=== PATIENT | female | born 1965 | race Caucasian/White ===

== ENCOUNTER 2023-07-29 16:28 | Inpatient (IN) ==
--- NOTE | 2023-07-29 16:52 | Emergency Department Note ---
Impression & Plan Acute hypoxemic respiratory failure, Acute hypokalemia, Hypomagnesemia, Hypocalcemia, Acute pericardial effusion ED Provider Note HISTORY OF PRESENT ILLNESS: Patient is a 58-year-old female presenting with shortness of breath. Patient was seen at [facility] for an outpatient surgery on her shoulder and wrist today. She reportedly has been short of breath with hypoxia since awaking from surgery. She does not normally wear any supplemental oxygen. Her saturations were down in the upper 80s. Patient denies any anticoagulation use. Denies any DVT or PE history. Patient reports she always feels short of breath, but states she feels more short of breath since waking up from surgery. Reports that she has had right leg pain that radiated up into her right groin over the last few weeks. ROS: as above PHYSICAL EXAM: Constitutional: Patient appears in no acute distress. HENT: Head: Normocephalic and atraumatic. Eyes: EOMI, PERRL Mouth/Throat: Mucous membranes moist. Neck: Trachea midline. Neck supple. Cardiovascular: Tachycardic with regular rhythm. No murmurs, rubs or gallops. Intact distal pulses. Pulmonary/Chest: No respiratory distress. Breath sounds clear and equal bilaterally. No wheezes or rales. Abdominal: Abdomen soft, no tenderness, rebound or guarding. Musculoskeletal: Surgical dressing to left shoulder. Left arm is in a sling. Skin: Warm and dry. No rash, erythema, pallor or cyanosis Psychiatric: Appropriate mood and affect for situation. Neurological: Alert and keenly responsive. CN II-XII grossly intact MDM: - Vitals signs showed tachycardia and hypoxia. Patient placed on 2 L nasal cannula. - History obtained via patient. History as above. - Chronic conditions affecting care: HTN; DM-2; COPD - Differential diagnoses include, but are not limited to: Congestive heart failure; acute coronary syndrome; COPD/asthma exacerbation; pulmonary edema; pulmonary embolism; pneumonia; pneumothorax; viral syndrome - Order placed for continuous cardiac monitoring. At this time, monitor showed rate of 100 bpm with normal sinus rhythm, per my interpretation. - External medical records reviewed. Operative record dated today was reviewed. Patient had a left shoulder arthroscopy with biceps tenodesis, rotator cuff repair and subacromial decompression and revision of her left carpal tunnel release performed. - EKG interpreted by myself showed normal sinus rhythm. Rate tachycardic at 102 bpm. QT 314. No acute ischemic changes. - Laboratory workup interpreted by myself showed normal WBC; slight hypokalemia (K 3.1); hypomagnesemia (Mg 1.6); hypocalcemia (Ca 8.0); hyperglycemia (glucose 286); normal troponin; normal BNP - CXR negative for pneumonia, per my interpretation - CT PE negative for PE but noted to have small to moderate pericardial effusion - Viral respiratory panel negative - UA negative for infection - Patient given 1g IV magnesium, a total of 20 mEq IV potassium and 1g IV calcium for electrolyte replacements. - Bilateral DVT US ordered, as patient reports she has had right calf and right groin pain for the last few weeks - Discussion was had with cyanide case hardener about patient's case and need for admission - Hospitalist consulted for admission - [facility] ASSESSMENT AND PLAN: Diagnosis: acute hypoxic respiratory failure; acute pericardial effusion; acute hypokalemia; acute hypomagnesemia; hypocalcemia Plan: admit Past Med/Surg History Social History Smoking Status: Current every day smoker Tobacco Type: Cigarettes Feels Safe at Home: Yes Allergies Allergies Allergy/AdvReac Type Severity Reaction Status Date / Time acetaminophen Allergy Unknown Verified 07/29/23 20:11 [From Darvocet-N] metformin Allergy Itching Verified 07/29/23 20:11 propoxyphene Allergy Unknown Verified 07/29/23 20:11 [From Darvocet-N] tramadol Allergy Unknown Verified 07/29/23 20:11 prednisone AdvReac Nausea Verified 07/29/23 20:11 Home Meds Home Medications Medication Instructions Recorded Confirmed Lactobacillus acidophilus 1 tab PO DAILY 07/29/23 07/29/23 (Acidophilus chewable tablet) acetaminophen 500 mg tablet 500 mg PO Q6H PRN Pain 07/29/23 07/29/23 (Tylenol Extra Strength) albuterol sulfate 90 mcg/actuation 1 - 2 puff inhalation Q4 PRN 07/29/23 07/29/23 aerosol inhaler Shortness Of Breath Or Wheezing alprazolam 0.25 mg tablet 0.25 mg PO TID PRN Anxiety 07/29/23 07/29/23 ascorbic acid (vitamin C) 500 mg 500 mg PO DAILY 07/29/23 07/29/23 tablet (Vitamin C) baclofen 20 mg tablet 20 mg PO TID PRN Muscle Pain 07/29/23 07/29/23 famotidine 40 mg tablet 40 mg PO DAILY 07/29/23 07/29/23 fluconazole 100 mg tablet 100 mg PO QAM 07/29/23 07/29/23 fluticasone 250 mcg-salmeterol 50 1 inh inhalation BID 07/29/23 07/29/23 mcg/dose blistr powdr for inhalation hydrochlorothiazide 12.5 mg capsule 12.5 mg PO DAILY 07/29/23 07/29/23 hydrocodone 7.5 mg-acetaminophen 1 tab PO Q6 PRN Pain 07/29/23 07/29/23 325 mg tablet melatonin 3 mg tablet 6 mg PO HS 07/29/23 07/29/23 olmesartan 20 mg tablet 20 mg PO DAILY 07/29/23 07/29/23 omeprazole 40 mg capsule,delayed 40 mg PO DAILY 07/29/23 07/29/23 release ondansetron HCl 8 mg tablet 8 mg PO BID PRN Nausea 07/29/23 07/29/23 oxcarbazepine 600 mg tablet 300 mg PO BID 07/29/23 07/29/23 oxycodone 5 mg tablet 5 mg PO Q6 PRN Pain 07/29/23 07/29/23 potassium chloride 10 mEq 10 meq PO DAILY 07/29/23 07/29/23 tablet,extended release(part/cryst) ropinirole 0.25 mg tablet 0.25 mg PO HS 07/29/23 07/29/23 rosuvastatin 20 mg tablet 20 mg PO DAILY 07/29/23 07/29/23 sennosides 8.6 mg tablet (Senokot) 17.2 mg PO BID 07/29/23 07/29/23 trazodone 100 mg tablet 100 mg PO HS 07/29/23 07/29/23 valacyclovir 500 mg tablet 500 mg PO HS 07/29/23 07/29/23 venlafaxine 150 mg 150 mg PO HS 07/29/23 07/29/23 capsule,extended release 24 hr Results & Data (ED) Vital Signs Vital Signs - 24 hr 07/29/23 16:31 07/29/23 16:31 07/29/23 16:41 Temperature 36.8 C 36.4 C Temperature Source Oral Oral Pulse Rate 104 H 100 H 103 H Pulse Rate [Finger] Pulse Rate from SpO2 Sensor Pulse Rhythm Regular Regular Regular Pulse Rhythm [Finger] Pulse Strength Normal Normal Pulse Strength [Finger] Respiratory Rate 20 18 20 Respiratory Effort / Characteristics Non-Labored Non-Labored Respiratory Depth Normal Normal Respiratory Pattern Regular Regular Blood Pressure 121/95 121/95 Blood Pressure [Right Arm] Blood Pressure Mean 103 103 Blood Pressure Mean [Right Arm] Blood Pressure Position Lying Lying Blood Pressure Position [Right Arm] Pulse Oximetry 94 92 93 Oxygen Delivery Method Nasal Cannula Nasal Cannula Nasal Cannula Oxygen Flow Rate 2 2 2 Sepsis Recent Fever Within 48 Hours No No Sepsis New/Unexplained Change in Mental Status N/A N/A Sepsis Action Taken by Nursing No Action Required No Action Required Pulse Oximetry Post Tiitration 07/29/23 16:41 07/29/23 16:49 07/29/23 17:30 Temperature Temperature Source Pulse Rate Pulse Rate [Finger] 100 H Pulse Rate from SpO2 Sensor Pulse Rhythm Pulse Rhythm [Finger] Regular Pulse Strength Pulse Strength [Finger] Normal Respiratory Rate 18 Respiratory Effort / Characteristics Non-Labored Non-Labored Spontaneous Respiratory Depth Normal Normal Respiratory Pattern Regular Regular Blood Pressure Blood Pressure [Right Arm] 143/84 H Blood Pressure Mean Blood Pressure Mean [Right Arm] 103 Blood Pressure Position Blood Pressure Position [Right Arm] Lying Pulse Oximetry 85 L 92 Oxygen Delivery Method Nasal Cannula Nasal Cannula Nasal Cannula Oxygen Flow Rate 2 2 2 Sepsis Recent Fever Within 48 Hours Sepsis New/Unexplained Change in Mental Status Sepsis Action Taken by Nursing Pulse Oximetry Post Tiitration 92 07/29/23 18:00 07/29/23 18:01 07/29/23 19:14 Temperature Temperature Source Pulse Rate 99 H 101 H Pulse Rate [Finger] 100 H Pulse Rate from SpO2 Sensor 101 H Pulse Rhythm Pulse Rhythm [Finger] Pulse Strength Pulse Strength [Finger] Respiratory Rate 16 25 H Respiratory Effort / Characteristics Respiratory Depth Respiratory Pattern Blood Pressure 146/95 H Blood Pressure [Right Arm] 149/90 H Blood Pressure Mean 112 Blood Pressure Mean [Right Arm] 109 Blood Pressure Position Blood Pressure Position [Right Arm] Pulse Oximetry 93 93 Oxygen Delivery Method Nasal Cannula Oxygen Flow Rate 2 Sepsis Recent Fever Within 48 Hours Sepsis New/Unexplained Change in Mental Status Sepsis Action Taken by Nursing Pulse Oximetry Post Tiitration Laboratory Data 07/29/23 16:45 07/29/23 16:45 Lab Results 07/29/23 07/29/23 07/29/23 Range/Units 16:40 16:45 17:24 WBC 10.39 (4.8-10.8) K/ul RBC 4.73 (4.20-5.40) M/uL Hgb 14.7 (12.0-16.0) g/dl Hct 44.6 (37.0-47.0) % MCV 94.3 (80.0-100.0) fL MCH 31.1 (25.0-34.0) pg MCHC 33.0 (32.0-36.0) g/dL RDW Std Deviation 46.5 H (36.4-46.3) fL RDW Coeff of Katina 13.5 (11.5-14.5) % Plt Count 207 (130-400) K/uL MPV 9.9 (9.4-12.4) fL Immature Gran % (Auto) 0.6 % Neut % (Auto) 88.6 % Lymph % (Auto) 9.3 % Gove % (Auto) 1.3 % Eos % (Auto) 0.0 % Baso % (Auto) 0.2 % Neut # (Auto) 9.21 H (1.40-6.50) K/uL Lymph # (Auto) 0.97 L (1.20-3.40) K/uL Gove # (Auto) 0.13 (0.11-0.59) K/uL Eos # (Auto) 0.00 (0.00-0.50) K/uL Baso # (Auto) 0.02 (0.00-0.20) K/uL Immature Gran # (Auto) 0.06 (0.01-0.20) K/uL PT 10.9 (9.0-12.0) Seconds INR 1.0 (0.9-1.1) VBG pH 7.38 (7.36-7.41) VBG pCO2 48 (38-50) mmHg VBG pO2 66 mmHg VBG HCO3 28 mmol/L VBG O2 Saturation 93.0 % VBG Base Excess 2.5 mEq/L Sodium 141 (136-145) mmol/L Potassium 3.1 L (3.5-5.1) mmol/L Chloride 100 (98-107) mmol/L Carbon Dioxide 27 (21-32) mmol/L Anion Gap 14 H (3-11) BUN 9 (6-23) mg/dl Creatinine 0.64 (0.6-1.2) mg/dl Est Cr Clr Drug Dosing 93.5 ml/min Est GFR ( Amer) 115.6 ml/min Est GFR (Non-Af Amer) 99.8 ml/min BUN/Creatinine Ratio 14.1 (10-20) Glucose 286 H (70-99(Fasting)) mg/dl Calcium 8.0 L (8.6-10.3) mg/dl Magnesium 1.6 L (1.7-2.4) mg/dl Total Bilirubin 0.3 (0.2-1.0) mg/dl AST 41 H (13-39) U/L ALT 47 (7-52) U/L Alkaline Phosphatase 74 (34-104) U/L Troponin I High Sens 6.8 (0-14) pg/ml B-Natriuretic Peptide 12 (0-100) pg/ml Total Protein 6.7 (6.0-8.3) gm/dl Albumin 4.2 (3.4-5.0) gm/dl Globulin 2.5 (2.5-4.0) gm/dl Albumin/Globulin Ratio 1.7 (0.9-2) Urine Color Yellow Urine Appearance Clear (Clear) Urine pH 6.0 (4.5-7.5) Ur Specific [place] 1.012 (1.000-1.030) Urine Protein Negative (Negative) Urine Glucose (UA) 3+ H (Negative) Urine Ketones Negative (Negative) Urine Blood Trace H (Negative) Urine Nitrite Negative (Negative) Urine Bilirubin Negative (Negative) Urine Urobilinogen Negative (Negative) Ur Leukocyte Esterase Negative (Negative) Urine WBC (Auto) 0 (0-5) /hpf Urine RBC (Auto) 0-4 (0-4) /hpf U Hyaline Cast (Auto) 0 (0-5) /lpf U Epithel Cells (Auto) 5-10 H (0-5) /lpf Urine Bacteria (Auto) Negative (Negative) Adenovirus (PCR) Not Detected (NotDetected) B. pertussis DNA (PCR) Not Detected (NotDetected) B.parapertussis DNA PCR Not Detected (NotDetected) C. pneumoniae DNA (PCR) Not Detected (NotDetected) Coronavirus OC43 (PCR) Not Detected (NotDetected) Coronavirus HKU1 (PCR) Not Detected (NotDetected) Coronavirus 229E (PCR) Not Detected (NotDetected) SARS-CoV-2 (PCR) Not Detected (NotDetected) Coronavirus NL63 (PCR) Not Detected (NotDetected) Human Metapneumovir PCR Not Detected (NotDetected) Influenza Type A (PCR) Not Detected (NotDetected) Influenza Type B (PCR) Not Detected (NotDetected) M. pneumoniae (PCR) Not Detected (NotDetected) Parainfluenza 1 (PCR) Not Detected (NotDetected) Parainfluenza 2 (PCR) Not Detected (NotDetected) Parainfluenza 3 (PCR) Not Detected (NotDetected) Parainfluenza 4 (PCR) Not Detected (NotDetected) RSV (PCR) Not Detected (NotDetected) Entero/Rhino (PCR) Not Detected (NotDetected) Administered Medications Discontinued Medications Calcium Gluconate () 1,000 mg in 60 mls @ 240 mls/hr IV NOW STA Stop: 07/29/23 20:18 Last Admin: 07/29/23 20:15 Dose: 240 mls/hr Documented By: TONY Ioversol (Optiray 320 125ml) 119 ml IV ONCE ONE Stop: 07/29/23 17:43 Last Admin: 07/29/23 17:42 Dose: 119 ml Documented By: LESLIE Imaging Data Radiologist's Impression: Chest X-Ray 07/29/23 16:31 XR chest 1V portable HISTORY: 58 years-old Female Dyspnea acute shortness of breath COMPARISON: None TECHNIQUE: AP view of the chest FINDINGS: Cardiac silhouette is enlarged. No pneumothorax, pleural effusion or overt pulmonary edema. Subsegmental left basilar opacities. Square-shaped structures overlying the left hemithorax are likely artifactual/external to the patient. Bones appear grossly intact. Cervical spinal fusion hardware. IMPRESSION: Subsegmental left basilar opacities favor atelectasis. ACT 112: Negative or not required by law. The above report was generated using voice recognition software. It may contain grammatical, syntax or spelling errors. Electronically signed by: Isaac Wyatt M.D. 07/29/2023 5:18 PM Chest CTA 07/29/23 16:55 CT angio chest PE protocol CT DOSE: 810.36 mGy.cm HISTORY: 58 years-old Female with PE; hypoxia post surgery. Acute shortness of breath with hypoxia TECHNIQUE: Multiple CTA images of the chest were obtained after the intravenous administration of 119 ml Optiray. Coronal and sagittal MIPS were obtained from the axial data set and were submitted for review. All measurements were obtained according to NASCET criteria. A dose lowering technique was utilized adhering to the principles of ALARA. COMPARISON: 07/29/2023 FINDINGS: CTA: A pericardial effusion is noted measuring up to 1.2 cm transversely. Mild coronary artery calcifications. 1 atherosclerosis of the aorta without aneurysm or dissection. No pulmonary emboli identified. CT CHEST: Unremarkable thyroid. No pathologically enlarged lymph nodes. Mild dependent bibasilar consolidation. No pneumothorax or overt pulmonary edema. There is mild pulmonary emphysema. No suspicious pulmonary nodules or masses. No acute upper abdominal abnormality. Cervical spinal fusion hardware. Degenerative changes of the shoulders and spine. Left glenohumeral joint effusion contains air with additional edema and air within the adjacent musculature and soft tissues including the deltoid muscle. IMPRESSION: 1. No pulmonary emboli identified. 2. Dependent bibasilar consolidation suggestive of atelectasis. 3. Small to moderate pericardial effusion. 4. Postoperative changes of the left shoulder. ACT 112: Negative or not required by law. The above report was generated using voice recognition software. It may contain grammatical, syntax or spelling errors. Electronically signed by: Isaac Wyatt M.D. 07/29/2023 6:06 PM Discharge Plan Visit Data Chief Complaint: Shortness of Breath/Dyspnea Stated Complaint: DECREASED O2 SATS; COMING FROM [facility] ED Provider: Radha Holland Discharge Problem: Acute hypoxemic respiratory failure, Acute hypokalemia, Hypomagnesemia, Hypocalcemia, Acute pericardial effusion Forms Stand Alone Forms: [employer] Prescriptions Prescriptions: No Action fluconazole 100 mg tablet 100 mg PO QAM fluticasone propion-salmeterol 250-50 mcg/dose blister with device 1 inh INHALATION BID sennosides [Senokot] 8.6 mg Tablet 17.2 mg PO BID ondansetron HCl 8 mg tablet 8 mg PO BID PRN (Reason: Nausea) famotidine 40 mg tablet 40 mg PO DAILY venlafaxine 150 mg capsule,extended release 24hr 150 mg PO HS melatonin 3 mg Tablet 6 mg PO HS valacyclovir 500 mg tablet 500 mg PO HS omeprazole 40 mg capsule,delayed release(DR/EC) 40 mg PO DAILY acetaminophen [Tylenol Extra Strength] 500 mg Tablet 500 mg PO Q6H PRN (Reason: Pain) baclofen 20 mg tablet 20 mg PO TID PRN (Reason: Muscle Pain) alprazolam 0.25 mg tablet 0.25 mg PO TID PRN (Reason: Anxiety) ascorbic acid (vitamin C) [Vitamin C] 500 mg Tablet 500 mg PO DAILY trazodone 100 mg tablet 100 mg PO HS ropinirole 0.25 mg tablet 0.25 mg PO HS hydrocodone-acetaminophen 7.5-325 mg tablet 1 tab PO Q6 PRN (Reason: Pain) hydrochlorothiazide 12.5 mg capsule 12.5 mg PO DAILY oxcarbazepine 600 mg tablet 300 mg PO BID albuterol sulfate 90 mcg/actuation HFA aerosol inhaler 1 - 2 puff INHALATION Q4 PRN (Reason: Shortness Of Breath Or Wheezing) oxycodone 5 mg tablet 5 mg PO Q6 PRN (Reason: Pain) olmesartan 20 mg tablet 20 mg PO DAILY Acidophilus Tablet,Chewable 1 tab PO DAILY rosuvastatin 20 mg tablet 20 mg PO DAILY potassium chloride 10 mEq tablet,ER particles/crystals 10 meq PO DAILY Referrals Referrals: PCP,NO [Physician] -
[2023-07-29 16:58] LABS: Basophils # (auto) 0.02 K/uL (0.00-0.20); Basophils % (auto) 0.2 %; Hematocrit (blood only) 44.6 % (37.0-47.0); Hemoglobin 14.7 g/dl (12.0-16.0); Immature Granulocytes # (auto) 0.06 K/uL (0.01-0.20); Immature Granulocytes % (auto) 0.6 %; Lymphocytes # (auto) 0.97 K/uL (1.20-3.40); Lymphocytes % (auto) 9.3 %; Mean Corpuscular Hemoglobin 31.1 pg (25.0-34.0); Mean Corpuscular Volume 94.3 fL (80.0-100.0); Mean Platelet Volume 9.9 fL (9.4-12.4); Monocytes # (auto) 0.13 K/uL (0.11-0.59); Monocytes % (auto) 1.3 %; Neutrophils # (auto) 9.21 K/uL (1.40-6.50); Neutrophils % (auto) 88.6 %; Platelet Count 207 K/uL (130-400); RDW Coefficient of Variation 13.5 % (11.5-14.5); RDW Standard Deviation 46.5 fL (36.4-46.3); Red Blood Count 4.73 M/uL (4.20-5.40); White Blood Count 10.39 K/ul (4.8-10.8)
--- NOTE | 2023-07-29 17:20 | XRay Report ---
XR chest 1V portable HISTORY: 58 years-old Female Dyspnea acute shortness of breath COMPARISON: None TECHNIQUE: AP view of the chest FINDINGS: Cardiac silhouette is enlarged. No pneumothorax, pleural effusion or overt pulmonary edema. Subsegmen ángela left basilar opacities. Square-shaped structures overlying the left hemithorax are likely artifac tual/external to the patient. Bones appear grossly intact. Cervical spinal fusion hardware. IMPRESSION: Subsegmental left basilar opacities favor atelectasis. ACT 112: Negative or not required by law. The above report was generated using voice recognition software. It may contain grammatical, syntax o r spelling errors. Electronically signed by: Isaac Wyatt M.D. 07/29/2023 5:18 PM
[2023-07-29 17:22] LABS: Albumin Globulin Ratio 1.7 (0.9-2); Albumin Level 4.2 gm/dl (3.4-5.0); BUN Creatinine Ratio 14.1 (10-20); Bilirubin,Total 0.3 mg/dl (0.2-1.0); Creatinine Clr Calc Pharmacy 93.5 ml/min; Est GFR (African American) 115.6 ml/min; Est GFR (Non-African American) 99.8 ml/min; Globulin 2.5 gm/dl (2.5-4.0); Magnesium 1.6 mg/dl (1.7-2.4); Potassium 3.1 mmol/L (3.5-5.1); Total Protein 6.7 gm/dl (6.0-8.3)
[2023-07-29 17:27] LABS: Appearance Urine Clear (Clear); Bacteria Urine Automated Negative (Negative); Bilirubin Urine Negative (Negative); Blood Urine Trace (Negative); Cast Urine Automated 0 /lpf (0-5); Color Urine Yellow; Glucose Urine UA 3+ (Negative); Ketones Urine Negative (Negative); Leukocyte Esterase Urine Negative (Negative); Nitrite Urine Negative (Negative); Protein Urine Negative (Negative); RBC Urine Automated 0-4 /hpf (0-4); Specific Gravity Urine 1.012 (1.000-1.030); Urobilinogen Urine Negative (Negative); WBC Urine Automated 0 /hpf (0-5)
[2023-07-29 17:28] LABS: Prothrombin Time 10.9 Seconds (9.0-12.0); Troponin I High Sensitivity 6.8 pg/ml (0-14)
[2023-07-29 17:32] LABS: Base Excess VBG 2.5 mEq/L; HCO3 VBG 28 mmol/L; PCO2 VBG 48 mmHg (38-50); PO2 VBG 66 mmHg; pH VBG 7.38 (7.36-7.41)
[2023-07-29] MEDS: OPTIRAY 320 125ml IV ONE (17:42)
--- NOTE | 2023-07-29 18:08 | CT Scan Report ---
CT angio chest PE protocol CT DOSE: 810.36 mGy.cm HISTORY: 58 years-old Female with PE; hypoxia post surgery. Acute shortness of breath with hypoxia TECHNIQUE: Multiple CTA images of the chest were obtained after the intravenous administration of 119 ml Optiray. Coronal and sagittal MIPS were obtained from the axial data set and were submitted for review. All measurements were obtained according to NASCET criteria. A dose lowering technique was u tilized adhering to the principles of ALARA. COMPARISON: 07/29/2023 FINDINGS: CTA: A pericardial effusion is noted measuring up to 1.2 cm transversely. Mild coronary artery calcificati ons. 1 atherosclerosis of the aorta without aneurysm or dissection. No pulmonary emboli identified. CT CHEST: Unremarkable thyroid. No pathologically enlarged lymph nodes. Mild dependent bibasilar consolidation. No pneumothorax or overt pulmonary edema. There is mild pulmonary emphysema. No suspicious pulmonary nodules or masses. No acute upper abdominal abnormality. Cervical spinal fusion hardware. Degenerati ve changes of the shoulders and spine. Left glenohumeral joint effusion contains air with additional edema and air within the adjacent musculature and soft tissues including the deltoid muscle. IMPRESSION: 1. No pulmonary emboli identified. 2. Dependent bibasilar consolidation suggestive of atelectasis. 3. Small to moderate pericardial effusion. 4. Postoperative changes of the left shoulder. ACT 112: Negative or not required by law. The above report was generated using voice recognition software. It may contain grammatical, syntax o r spelling errors. Electronically signed by: Isaac Wyatt M.D. 07/29/2023 6:06 PM
[2023-07-29 18:12] LABS: Adenovirus PCR Not Detected (NotDetected); Bordetella parapertussis PCR Not Detected (NotDetected); Bordetella pertussis PCR Not Detected (NotDetected); Chlamydia pneumoniae PCR Not Detected (NotDetected); Coronavirus 229E PCR Not Detected (NotDetected); Coronavirus CoV-2 (COVID19)PCR Not Detected (NotDetected); Coronavirus HKU1 PCR Not Detected (NotDetected); Coronavirus NL63 PCR Not Detected (NotDetected); Coronavirus OC43PCR Not Detected (NotDetected); Human Metapneumovirus PCR Not Detected (NotDetected); Influenza A PCR Not Detected (NotDetected); Influenza B PCR Not Detected (NotDetected); Mycoplasma pneumoniae PCR Not Detected (NotDetected); Parainfluenza Virus 1 PCR Not Detected (NotDetected); Parainfluenza Virus 2 PCR Not Detected (NotDetected); Parainfluenza Virus 3 PCR Not Detected (NotDetected); Parainfluenza Virus 4 PCR Not Detected (NotDetected); Respiratory Syncytial VirusPCR Not Detected (NotDetected); Rhinovirus/Enterovirus PCR Not Detected (NotDetected)
[2023-07-29] MEDS: CALCIUM GLUCONATE 1,000 MG/60 ML BAG IV STA (20:15)
--- NOTE | 2023-07-29 20:17 | History & Physical Report ---
Date of Service July 29, 2023 Assessment & Plan (1) Acute hypoxemic respiratory failure: (2) Acute hypokalemia: (3) Hypomagnesemia: (4) Pericardial effusion: (5) Hypertension: (6) COPD (chronic obstructive pulmonary disease): (7) Tobacco abuse: (8) Chronic pain: (9) S/P arthroscopy of left shoulder: Plan 58 year old female with h/o COPD and tobacco abuse s/p left shoulder surgery today who was sent to ED for hypoxia post op Acute hypoxic respiratory failure- details above. CT with no PE or PNA but some atelectasia. RVP negative. BNP negative. Currently on 2 L NC saturating well. No resp distress, no crackles or wheezing. No COPD exacerbation. Likely related to her COPD, tobacco abuse and atelectasia in setting of anesthesia. Will have duonebs qid, pulmicort/peroformist, IS, flutter valve. No indication for steroids or antibiotics. Will be cautious with opiates although she will need it given her chronic opiate use as well as recent surgery. Will need 2 step O2 eval prior to discharge - CT with small-mod pericardial effusion. Consider checking echo if needed or OP follow up. Hypokalemia- repleted, recheck in am Hypomagnesemia- repleted, recheck in am HTN- continue olmesartan. Hold HCTZ. Can likely resume in am if needed Left shoulder arthroscopy with left carpal tunnel repair by Dr Crespo POD0- consult orthopedic for regular post op care. Oxy 5-10 mg q4hr prn for mod-sev pain, iv toradaol prn for breakthrough pain. Hold home norco while on oxy. Continue bowel regimen. PT OT eval. sc lovenox from am Tobacco abuse- recommended quitting. smokes 1 ppd. nicoderm patch H/o DM- states she was on jardiance but it dropped her BG too much and it was taken away. Check A1c in am and accucheck achs. Depression- on effexor Chronic pain on opiates and baclofen. takes xanax hs DVT ppx- sc lovenox Dispo- admit to [facility] on tele Updated daughter at bedside Time spent- 88 mins History of Present Illness Chief Complaint: SOB, hypoxia post surgery Primary Care Provider: Tim D. Armstrong, DO 58 year old female with h/o COPD, tobacco abuse, HTN, depresson, HLD, chronic pain on opiates who presented to the ED from [facility] for hypoxia. Patient had left shoulder arthroscopy and left carpal tunnel repair today by Dr Crespo. Patient was found to be hypoxic post op at 84-90% on room air and on ambulation it was 76% on room air. She was sent to the ED for further management. She was given nebs en route and placed on oxygen she felt better. She had CT chest which was negative for PE or PNA but shows some atelectasia and small to moderate pericardial effusion. She was placed on2 L NC. RVP negative, labs with mild hypokalemia, hypomagnesemia. Hospitalist service was consulted for further management of her hypoxia. Reviewed her medical history and medications at bedside. She continues to smoke 1 ppd. She uses bid inhaler along with albuterol inhaler prn at home. PMH- HTN, COPD, depression, HLD, chronic pain PSH- C6-7 anterior cervical diskectomy, left shoulder arthroscopy, left carpal tunner surgery Social history- Smokes 1 ppd Allergies Allergy/AdvReac Type Severity Reaction Status Date / Time acetaminophen Allergy Unknown Verified 07/29/23 20:11 [From Darvocet-N] metformin Allergy Itching Verified 07/29/23 20:11 propoxyphene Allergy Unknown Verified 07/29/23 20:11 [From Darvocet-N] tramadol Allergy Unknown Verified 07/29/23 20:11 prednisone AdvReac Nausea Verified 07/29/23 20:11 Home Medications Medication Instructions Recorded Confirmed Type Lactobacillus acidophilus 1 tab PO DAILY 07/29/23 07/29/23 History (Acidophilus chewable tablet) acetaminophen 500 mg tablet 500 mg PO Q6H PRN Pain 07/29/23 07/29/23 History (Tylenol Extra Strength) albuterol sulfate 90 mcg/actuation 1 - 2 puff inhalation Q4 PRN 07/29/23 07/29/23 History aerosol inhaler Shortness Of Breath Or Wheezing alprazolam 0.25 mg tablet 0.25 mg PO TID PRN Anxiety 07/29/23 07/29/23 History ascorbic acid (vitamin C) 500 mg 500 mg PO DAILY 07/29/23 07/29/23 History tablet (Vitamin C) baclofen 20 mg tablet 20 mg PO TID PRN Muscle Pain 07/29/23 07/29/23 History famotidine 40 mg tablet 40 mg PO DAILY 07/29/23 07/29/23 History fluconazole 100 mg tablet 100 mg PO QAM 07/29/23 07/29/23 History fluticasone 250 mcg-salmeterol 50 1 inh inhalation BID 07/29/23 07/29/23 History mcg/dose blistr powdr for inhalation hydrochlorothiazide 12.5 mg capsule 12.5 mg PO DAILY 07/29/23 07/29/23 History hydrocodone 7.5 mg-acetaminophen 1 tab PO Q6 PRN Pain 07/29/23 07/29/23 History 325 mg tablet melatonin 3 mg tablet 6 mg PO HS 07/29/23 07/29/23 History olmesartan 20 mg tablet 20 mg PO DAILY 07/29/23 07/29/23 History omeprazole 40 mg capsule,delayed 40 mg PO DAILY 07/29/23 07/29/23 History release ondansetron HCl 8 mg tablet 8 mg PO BID PRN Nausea 07/29/23 07/29/23 History oxcarbazepine 600 mg tablet 300 mg PO BID 07/29/23 07/29/23 History oxycodone 5 mg tablet 5 mg PO Q6 PRN Pain 07/29/23 07/29/23 History potassium chloride 10 mEq 10 meq PO DAILY 07/29/23 07/29/23 History tablet,extended release(part/cryst) ropinirole 0.25 mg tablet 0.25 mg PO HS 07/29/23 07/29/23 History rosuvastatin 20 mg tablet 20 mg PO DAILY 07/29/23 07/29/23 History sennosides 8.6 mg tablet (Senokot) 17.2 mg PO BID 07/29/23 07/29/23 History trazodone 100 mg tablet 100 mg PO HS 07/29/23 07/29/23 History valacyclovir 500 mg tablet 500 mg PO HS 07/29/23 07/29/23 History venlafaxine 150 mg 150 mg PO HS 07/29/23 07/29/23 History capsule,extended release 24 hr Past Med/Surg History Social History Smoking Status: Current every day smoker Tobacco Type: Cigarettes Feels Safe at Home: Yes Review of Systems Review of Systems: All systems reviewed & are unremarkable except as noted in Subjective Physical Exam Physical Exam: General:Sitting comfortably in bed, not in distress, on NC 2 L HEENT: EOMI, ALENA, MMM Chest: Fair breath sounds bilaterally without wheezes or crackles CVS: tachycardic, normal heart sounds, no murmur Abdomen: Soft, non tender, not distended, normal bowel sounds Neuro: Awake, alert, oriented, conversing well, non focal Extremities: No cyanosis, clubbing or edema MSK: LUE in sling, surgical dressing noted Results & Data Results & Data Vital Signs (Past 12 Hours) Vital Signs Temp Pulse Pulse Resp BP BP Pulse Ox 07/29/23 19:14 100 H 25 H 149/90 H 93 07/29/23 18:01 101 H 16 146/95 H 93 07/29/23 18:00 99 H 07/29/23 17:30 100 H 18 143/84 H 92 07/29/23 16:49 85 L 07/29/23 16:41 07/29/23 16:41 36.4 C 103 H 20 121/95 93 07/29/23 16:31 100 H 18 92 07/29/23 16:31 36.8 C 104 H 20 121/95 94 O2 Del Method O2 Flow Rate 07/29/23 19:14 Nasal Cannula 2 07/29/23 18:01 07/29/23 18:00 07/29/23 17:30 Nasal Cannula 2 07/29/23 16:49 Nasal Cannula 2 07/29/23 16:41 Nasal Cannula 2 07/29/23 16:41 Nasal Cannula 2 07/29/23 16:31 Nasal Cannula 2 07/29/23 16:31 Nasal Cannula 2 Laboratory Results Short CBC 07/29/23 Range/Units 16:45 WBC 10.39 (4.8-10.8) K/ul Hgb 14.7 (12.0-16.0) g/dl Hct 44.6 (37.0-47.0) % Plt Count 207 (130-400) K/uL BMP 07/29/23 16:45 Sodium 141 Potassium 3.1 L Chloride 100 Carbon Dioxide 27 BUN 9 Creatinine 0.64 Glucose 286 H Calcium 8.0 L Liver Function 07/29/23 Range/Units 16:45 Total Bilirubin 0.3 (0.2-1.0) mg/dl AST 41 H (13-39) U/L ALT 47 (7-52) U/L Alkaline Phosphatase 74 (34-104) U/L Albumin 4.2 (3.4-5.0) gm/dl Urine 07/29/23 Range/Units 16:40 Urine Color Yellow Urine Appearance Clear (Clear) Urine pH 6.0 (4.5-7.5) Ur Specific [place] 1.012 (1.000-1.030) Urine Protein Negative (Negative) Urine Glucose (UA) 3+ H (Negative) Diagnostic Findings Chest X-Ray 07/29/23 16:31 XR chest 1V portable HISTORY: 58 years-old Female Dyspnea acute shortness of breath COMPARISON: None TECHNIQUE: AP view of the chest FINDINGS: Cardiac silhouette is enlarged. No pneumothorax, pleural effusion or overt pulmonary edema. Subsegmental left basilar opacities. Square-shaped structures overlying the left hemithorax are likely artifactual/external to the patient. Bones appear grossly intact. Cervical spinal fusion hardware. IMPRESSION: Subsegmental left basilar opacities favor atelectasis. ACT 112: Negative or not required by law. The above report was generated using voice recognition software. It may contain grammatical, syntax or spelling errors. Electronically signed by: Isaac Wyatt M.D. 07/29/2023 5:18 PM Chest CTA 07/29/23 16:55 CT angio chest PE protocol CT DOSE: 810.36 mGy.cm HISTORY: 58 years-old Female with PE; hypoxia post surgery. Acute shortness of breath with hypoxia TECHNIQUE: Multiple CTA images of the chest were obtained after the intravenous administration of 119 ml Optiray. Coronal and sagittal MIPS were obtained from the axial data set and were submitted for review. All measurements were obtained according to NASCET criteria. A dose lowering technique was utilized adhering to the principles of ALARA. COMPARISON: 07/29/2023 FINDINGS: CTA: A pericardial effusion is noted measuring up to 1.2 cm transversely. Mild coronary artery calcifications. 1 atherosclerosis of the aorta without aneurysm or dissection. No pulmonary emboli identified. CT CHEST: Unremarkable thyroid. No pathologically enlarged lymph nodes. Mild dependent bibasilar consolidation. No pneumothorax or overt pulmonary edema. There is mild pulmonary emphysema. No suspicious pulmonary nodules or masses. No acute upper abdominal abnormality. Cervical spinal fusion hardware. Degenerative changes of the shoulders and spine. Left glenohumeral joint effusion contains air with additional edema and air within the adjacent musculature and soft tissues including the deltoid muscle. IMPRESSION: 1. No pulmonary emboli identified. 2. Dependent bibasilar consolidation suggestive of atelectasis. 3. Small to moderate pericardial effusion. 4. Postoperative changes of the left shoulder. ACT 112: Negative or not required by law. The above report was generated using voice recognition software. It may contain grammatical, syntax or spelling errors. Electronically signed by: Isaac Wyatt M.D. 07/29/2023 6:06 PM Code Status & VTE Plan VTE Prophylaxis Plan VTE Prophylaxis will be ordered: Yes
[2023-07-29] MEDS ORDERED: KETOROLAC TROMETHAMINE 15 MG/ML VIAL IV PRN (20:40)
[2023-07-29] MEDS: VENLAFAXINE HCL XR 150 MG CAPXR PO SCH (23:15)
[2023-07-29] MEDS: valACYclovir HCL 500 MG TABLET PO SCH (23:16)
[2023-07-29] MEDS: SENNA 8.6 MG TAB PO SCH (23:17)
[2023-07-29] MEDS: traZODone HCL 100 MG TAB PO SCH (23:17)
[2023-07-29] MEDS: OXcarbazepine 150 MG TABLET PO SCH (23:18)
[2023-07-29] MEDS: rOPINIRole HCL 0.25 MG TABLET PO SCH (23:18)
[2023-07-29] MEDS: FLUCONAZOLE 100 MG TAB PO SCH (23:19)
[2023-07-29] MEDS: FAMOTIDINE 40 MG TABLET PO SCH (23:19)
[2023-07-29] MEDS: MELATONIN 3 MG TAB PO SCH (23:19)
[2023-07-29] MEDS: POTASSIUM CHLORIDE / WTR 10 MEQ/100 ML PLCT IV SCH (23:20)
[2023-07-29] MEDS: MAGNESIUM SULFATE / D5W 1 GM/100 ML BAG IV STA (23:20)
[2023-07-29] MEDS: BACLOFEN 20 MG TAB PO SCH (23:20)
[2023-07-29] MEDS: KETOROLAC TROMETHAMINE 15 MG/ML VIAL IV SCH (23:21)
--- NOTE | 2023-07-30 00:13 | Ultrasound Report ---
Exam(s): US VENOUS BILATERAL LOWER EXTREMITIES EXAM: US Duplex Bilateral Lower Extremities Veins CLINICAL HISTORY: Reason for exam: hypoxia; r/o DVT. TECHNIQUE: Real-time duplex ultrasound scan of the bilateral lower extremity veins integrating B-mode two-dimensional vascular structure, Doppler spectral analysis, color flow Doppler imaging and compression. COMPARISON: None. FINDINGS: Right deep veins: Unremarkable. No DVT in the right common femoral, femoral, proximal deep femoral or popliteal veins. The veins demonstrate normal color flow, are normally compressible, with normal phasic flow and/or augmentation response. Right superficial veins: Unremarkable. No thrombus in the visualized right great saphenous vein. Left deep veins: Unremarkable. No DVT in the left common femoral, femoral, proximal deep femoral or popliteal veins. The veins demonstrate normal color flow, are normally compressible, with normal phasic flow and/or augmentation response. Left superficial veins: Unremarkable. No thrombus in the visualized left great saphenous vein. Soft tissues: No acute findings. No popliteal cyst. IMPRESSION: No ultrasonographic evidence of deep venous thrombosis involving the bilateral lower extremities. Electronically signed by: Nela Mir MD 07/30/23 00:12 AM
[2023-07-30] MEDS: POTASSIUM CHLORIDE 10 MEQ / 100ML WTR IV ONE (01:25)
[2023-07-30] MEDS: POTASSIUM CHLORIDE CRTAB 20 MEQ TABCR PO ONE ×2 (02:11→09:12)
[2023-07-30 04:51] LABS: Hematocrit (blood only) 39.1 % (37.0-47.0); Hemoglobin 13.3 g/dl (12.0-16.0); Mean Corpuscular Hemoglobin 31.4 pg (25.0-34.0); Mean Corpuscular Volume 92.2 fL (80.0-100.0); RDW Coefficient of Variation 13.5 % (11.5-14.5); RDW Standard Deviation 46.2 fL (36.4-46.3); Red Blood Count 4.24 M/uL (4.20-5.40); White Blood Count 15.35 K/ul (4.8-10.8)
[2023-07-30 04:52] LABS: Basophils # (auto) 0.04 K/uL (0.00-0.20); Basophils % (auto) 0.3 %; Immature Granulocytes # (auto) 0.06 K/uL (0.01-0.20); Immature Granulocytes % (auto) 0.4 %; Lymphocytes # (auto) 1.67 K/uL (1.20-3.40); Lymphocytes % (auto) 10.9 %; Mean Platelet Volume 10.7 fL (9.4-12.4); Monocytes # (auto) 1.19 K/uL (0.11-0.59); Monocytes % (auto) 7.8 %; Neutrophils # (auto) 12.39 K/uL (1.40-6.50); Neutrophils % (auto) 80.6 %; Platelet Count 214 K/uL (130-400)
[2023-07-30 04:56] LABS: BUN Creatinine Ratio 19.1 (10-20); Creatinine Clr Calc Pharmacy 127.3 ml/min; Est GFR (Non-African American) 110.4 ml/min; Magnesium 1.8 mg/dl (1.7-2.4); Potassium 3.3 mmol/L (3.5-5.1)
[2023-07-30] MEDS: ALBUT/IPRATROP 3MG/0.5MG NEB 3 ML VIAL NEB SCH (06:42)
[2023-07-30] MEDS: BUDESONIDE 0.5 MG/2 ML VIAL (PULMICORT) NEB SCH (06:42)
[2023-07-30] MEDS: FORMOTEROL 20 MCG/2 ML VIAL NEB SCH (06:42)
[2023-07-30 07:03] LABS: Estimated Average Glucose 134 mg/dl; Hemoglobin A1C 6.3 % (4.5-5.6)
--- NOTE | 2023-07-30 07:32 | Electrocardiogram Report ---
Test Reason : Blood Pressure : / mmHG Vent. Rate : 102 BPM Atrial Rate : 102 BPM P-R Int : 146 ms QRS Dur : 080 ms QT Int : 314 ms P-R-T Axes : 053 072 037 degrees QTc Int : 409 ms Sinus tachycardia Nonspecific ST and T wave abnormality Abnormal ECG No previous ECGs available Confirmed by Delano Wray ([id number]) on 07/30/2023 7:32:30 AM Referred By: Confirmed By:Delano Wray
[2023-07-30] MEDS: ASCORBIC ACID 500 MG TAB PO SCH (08:51)
[2023-07-30] MEDS: LOSARTAN POTASSIUM 50 MG TAB PO SCH (08:52)
[2023-07-30] MEDS: ADVANCED PROBIOTIC 625 MG CAPSULE PO SCH (08:52)
[2023-07-30] MEDS: PANTOprazole 40 MG TAB PO SCH (08:53)
[2023-07-30] MEDS: ROSUVASTATIN CALCIUM 20 MG TAB PO SCH (08:54)
[2023-07-30] MEDS: oxyCODONE HCL IR 5 MG TAB (IMMEDIATE RELEASE) PO PRN ×2 (08:57→21:49)
[2023-07-30] MEDS: NICOTINE 21 MG/24 HR TDSY TD SCH (09:00)
[2023-07-30] MEDS: MAGNESIUM CHLORIDE W/CALCIUM 64MG DELAYED REL TAB PO SCH (09:02)
[2023-07-30] MEDS: ENOXAPARIN INJ 40 MG/0.4 ML SYR SQ SCH (09:13)
[2023-07-30] MEDS ORDERED: ALBUTEROL HFA 8 GM INHALER INH PRN (11:46)
[2023-07-30] MEDS ORDERED: ALBUT/IPRATROP 3MG/0.5MG NEB 3 ML VIAL NEB PRN (11:48)
--- NOTE | 2023-07-30 13:36 | Hospitalist Progress Note ---
Date of Service July 30, 2023 Assessment & Plan (1) Acute hypoxemic respiratory failure: (2) Acute hypokalemia: (3) Hypomagnesemia: (4) Pericardial effusion: (5) Hypertension: (6) COPD (chronic obstructive pulmonary disease): (7) Tobacco abuse: (8) Chronic pain: (9) S/P arthroscopy of left shoulder: Plan 58 year old female with h/o COPD and tobacco abuse s/p left shoulder surgery today who was sent to ED for hypoxia post op Postoperative hypoxia Likely multifactorial secondary to medications/anesthetics, atelectasis in setting of COPD --CTA:No pulmonary emboli identified. Dependent bibasilar consolidation suggestive of atelectasis. Small to moderate pericardial effusion. --Venous Doppler:No ultrasonographic evidence of deep venous thrombosis involving the bilateral lower extremities. -- BioFire negative -- BNP normal Continue incentive spirometer, flutter Continue home inhalers Titrate oxygen to keep sats 88 to 92% given history of COPD Supplemental oxygen as needed Will need to step prior to discharge Chronic pericardial effusion Patient aware of effusion many years ago Incidental finding on CT scan Will obtain echo for further evaluation May need follow-up with cardiology on discharge Hypokalemia Hypomagnesemia Replete electrolytes as needed Monitor Constipation Started on bowel regimen Encouraged to ambulate Postoperative state S/P Left shoulder arthroscopy with left carpal tunnel repair by Dr Crespo done on 07/29/2023 Continue sling/immobilization left upper extremity as recommended by Ortho Pain control as needed Needs follow-up with orthopedics on discharge HTN continue olmesartan Resume HCTZ as able Tobacco abuse 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 DM II states she was on jardiance but it dropped her BG too much and it was taken away HbA1c 6.3 Monitor Depression Continue Effexor Chronic pain Insomnia on opiates and baclofen On Xanax hs DVT Px: Lovenox SQ Code Status Full Code Admission and Anticipated Discharge Date Admission Date: July 29, 2023 Subjective Patient is seen and examined at bedside Admits to have left shoulder pain at surgical site Also reports minimal cough associated with dyspnea on exertion Reports constipation with some abdominal bloating Denies any chest pain, dizziness, nausea, vomiting No other complaints Review of Systems Review of Systems: All systems reviewed & are unremarkable except as noted in Subjective Physical Exam Physical Exam: Physical Exam: Vitals signs as noted above General Appearance:Moderately built and nourished, no apparent distress Head: normocephalic, Atraumatic Eyes: normal inspection, EOMI Neck: supple, Trachea midline Respiratory/Chest: Normal breath sounds, CTA, No accessory muscle use Cardiovascular: S1, S2, No murmur Abdomen/GI:Soft, Non tender, Bowel sounds present Extremities/Musculoskeletal:normal inspection, L UE shoulder in surgical dressing, LUE in sling Neurologic/Psych:AAOX3, grossly no focal neurological deficits Skin: normal color, warm Results & Data Results & Data Vital Signs (Past 12 Hours) Vital Signs Temp Pulse Resp BP Pulse Ox O2 Del Method O2 Flow Rate 07/30/23 10:23 98 H 14 96 Nasal Cannula 1 07/30/23 09:21 37.3 C 99 H 20 168/94 H 95 Nasal Cannula 07/30/23 08:37 Nasal Cannula 2 07/30/23 06:43 95 H 16 95 Nasal Cannula 2 07/30/23 03:00 84 20 158/102 H 95 Nasal Cannula 2 Laboratory Results Short CBC 07/29/23 07/30/23 Range/Units 16:45 04:04 WBC 10.39 15.35 H (4.8-10.8) K/ul Hgb 14.7 13.3 (12.0-16.0) g/dl Hct 44.6 39.1 (37.0-47.0) % Plt Count 207 214 (130-400) K/uL BMP 07/29/23 07/30/23 16:45 04:04 Sodium 141 141 Potassium 3.1 L 3.3 L Chloride 100 104 Carbon Dioxide 27 28 BUN 9 9 Creatinine 0.64 0.47 L Glucose 286 H 147 H Calcium 8.0 L 8.0 L Liver Function 07/29/23 Range/Units 16:45 Total Bilirubin 0.3 (0.2-1.0) mg/dl AST 41 H (13-39) U/L ALT 47 (7-52) U/L Alkaline Phosphatase 74 (34-104) U/L Albumin 4.2 (3.4-5.0) gm/dl Urine 07/29/23 Range/Units 16:40 Urine Color Yellow Urine Appearance Clear (Clear) Urine pH 6.0 (4.5-7.5) Ur Specific [place] 1.012 (1.000-1.030) Urine Protein Negative (Negative) Urine Glucose (UA) 3+ H (Negative)
[2023-07-30] MEDS: bisacodyL 5 MG TABEC PO PRN (15:27)
[2023-07-30] MEDS: ALPRAZolam 0.25 MG TABLET PO SCH (21:47)
[2023-07-30] MEDS: DOCUSATE SODIUM 100 MG CAP PO SCH (21:47)
[2023-07-31 07:20] LABS: Hematocrit (blood only) 44.4 % (37.0-47.0); Hemoglobin 14.6 g/dl (12.0-16.0); Mean Corpuscular Hemoglobin 30.9 pg (25.0-34.0); Mean Corpuscular Hgb Conc 32.9 g/dL (32.0-36.0); Mean Corpuscular Volume 93.9 fL (80.0-100.0); Mean Platelet Volume 10.3 fL (9.4-12.4); Platelet Count 213 K/uL (130-400); RDW Coefficient of Variation 13.6 % (11.5-14.5); RDW Standard Deviation 46.9 fL (36.4-46.3); Red Blood Count 4.73 M/uL (4.20-5.40); White Blood Count 10.04 K/ul (4.8-10.8)
[2023-07-31 07:28] LABS: BUN Creatinine Ratio 23.9 (10-20); Calcium 8.7 mg/dl (8.6-10.3); Creatinine Clr Calc Pharmacy 127.8 ml/min; Est GFR (African American) 128.9 ml/min; Est GFR (Non-African American) 111.2 ml/min; Magnesium 1.7 mg/dl (1.7-2.4); Potassium 3.7 mmol/L (3.5-5.1)
[2023-07-31] MEDS: hydroCHLOROthiazide 25 MG TAB PO SCH (07:45)
[2023-07-31] MEDS: FLUTICASONE/VILANTEROL 200/25MCG 14 PUFFS/INHALER INH SCH (07:47)
--- NOTE | 2023-07-31 13:13 | Hospitalist Progress Note ---
Date of Service July 31, 2023 Assessment & Plan (1) Acute hypoxemic respiratory failure: (2) Acute hypokalemia: (3) Hypomagnesemia: (4) Pericardial effusion: (5) Hypertension: (6) COPD (chronic obstructive pulmonary disease): (7) Tobacco abuse: (8) Chronic pain: (9) S/P arthroscopy of left shoulder: Plan 58 year old female with h/o COPD and tobacco abuse s/p left shoulder surgery today who was sent to ED for hypoxia post op Postoperative hypoxia Likely multifactorial secondary to medications/anesthetics, atelectasis in setting of COPD --CTA:No pulmonary emboli identified. Dependent bibasilar consolidation suggestive of atelectasis. Small to moderate pericardial effusion. --Venous Doppler:No ultrasonographic evidence of deep venous thrombosis involving the bilateral lower extremities. -- BioFire negative -- BNP normal Continue incentive spirometer, flutter Continue home inhalers Titrate oxygen to keep sats 88 to 92% given history of COPD Weaned off of supplemental oxygen 2 Step: Needs 2 L supplemental oxygen with activity Chronic pericardial effusion Patient aware of effusion many years ago Incidental finding on CT scan Echo pending May need follow-up with cardiology on discharge Hypokalemia Hypomagnesemia Replete electrolytes as needed Monitor Constipation Continue bowel regimen Encouraged to ambulate Postoperative state S/P Left shoulder arthroscopy with left carpal tunnel repair by Dr Crespo done on 07/29/2023 Continue sling/immobilization left upper extremity as recommended by Ortho Pain control as needed Needs follow-up with orthopedics on discharge HTN BP elevated likely situational secondary to pain continue olmesartan Resume HCTZ Added amlodipine 2.5 mg daily Monitor BP Tobacco abuse 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 DM II states she was on jardiance but it dropped her BG too much and it was taken away HbA1c 6.3 Monitor Depression Continue Effexor Chronic pain Insomnia on opiates and baclofen On Xanax hs DVT Px: Lovenox SQ Code Status Full Code Disposition Home Admission and Anticipated Discharge Date Admission Date: July 29, 2023 Subjective Patient is seen and examined at bedside No new complaints Reports left shoulder pain at surgical site BP elevated today Denies any chest pain, dizziness, nausea, vomiting Had 2 step earlier today Plan to be discharged home today Review of Systems Review of Systems: All systems reviewed & are unremarkable except as noted in Subjective Physical Exam Physical Exam: Physical Exam: Vitals signs as noted above General Appearance:Moderately built and nourished, no apparent distress Head: normocephalic, Atraumatic Eyes: normal inspection, EOMI Neck: supple, Trachea midline Respiratory/Chest: Normal breath sounds, CTA, No accessory muscle use Cardiovascular: S1, S2, No murmur Abdomen/GI:Soft, Non tender, Bowel sounds present Extremities/Musculoskeletal:normal inspection, L UE shoulder in surgical dressing, LUE in sling Neurologic/Psych:AAOX3, grossly no focal neurological deficits Skin: normal color, warm Results & Data Results & Data Vital Signs (Past 12 Hours) Vital Signs Temp Pulse Pulse Pulse Pulse Pulse Resp 07/31/23 11:47 36.7 C 93 H 15 07/31/23 11:27 36.7 C 77 16 07/31/23 09:19 90 94 H 84 07/31/23 07:45 07/31/23 07:25 36.7 C 77 16 07/31/23 05:59 79 Resp Resp Resp BP Pulse Ox Pulse Ox Pulse Ox 07/31/23 11:47 167/101 H 90 07/31/23 11:27 157/100 H 90 07/31/23 09:19 22 22 16 92 86 L 07/31/23 07:45 07/31/23 07:25 157/100 H 90 07/31/23 05:59 Pulse Ox O2 Del Method O2 Flow Rate 07/31/23 11:47 Room Air 07/31/23 11:27 07/31/23 09:19 90 2 07/31/23 07:45 Room Air 07/31/23 07:25 Room Air 07/31/23 05:59 Laboratory Results Short CBC 07/31/23 Range/Units 06:47 WBC 10.04 (4.8-10.8) K/ul Hgb 14.6 (12.0-16.0) g/dl Hct 44.4 (37.0-47.0) % Plt Count 213 (130-400) K/uL BMP 07/31/23 06:47 Sodium 139 Potassium 3.7 Chloride 100 Carbon Dioxide 33 H BUN 11 Creatinine 0.46 L Glucose 109 H Calcium 8.7
--- NOTE | 2023-07-31 13:20 | Discharge Summary ---
Date of Service July 31, 2023 Admission HPI Per Admitting Provider 58 year old female with h/o COPD, tobacco abuse, HTN, depresson, HLD, chronic pain on opiates who presented to the ED from [facility] for hypoxia. Patient had left shoulder arthroscopy and left carpal tunnel repair today by Dr Crespo. Patient was found to be hypoxic post op at 84-90% on room air and on ambulation it was 76% on room air. She was sent to the ED for further management. She was given nebs en route and placed on oxygen she felt better. She had CT chest which was negative for PE or PNA but shows some atelectasia and small to moderate pericardial effusion. She was placed on2 L NC. RVP negative, labs with mild hypokalemia, hypomagnesemia. Hospitalist service was consulted for further management of her hypoxia. Reviewed her medical history and medications at bedside. She continues to smoke 1 ppd. She uses bid inhaler along with albuterol inhaler prn at home. PMH- HTN, COPD, depression, HLD, chronic pain PSH- C6-7 anterior cervical diskectomy, left shoulder arthroscopy, left carpal tunner surgery Social history- Smokes 1 ppd Admission Exam Per Admitting Provider General:Sitting comfortably in bed, not in distress, on NC 2 L HEENT: EOMI, ALENA, MMM Chest: Fair breath sounds bilaterally without wheezes or crackles CVS: tachycardic, normal heart sounds, no murmur Abdomen: Soft, non tender, not distended, normal bowel sounds Neuro: Awake, alert, oriented, conversing well, non focal Extremities: No cyanosis, clubbing or edema MSK: LUE in sling, surgical dressing noted Principal Diagnosis Postoperative hypoxia Pericardial effusion Hypokalemia Hypomagnesemia Postoperative state Hypertension Discharge Data Allergies Allergy/AdvReac Type Severity Reaction Status Date / Time acetaminophen Allergy Unknown Verified 07/29/23 20:11 [From Darvocet-N] metformin Allergy Itching Verified 07/29/23 20:11 propoxyphene Allergy Unknown Verified 07/29/23 20:11 [From Darvocet-N] tramadol Allergy Unknown Verified 07/29/23 20:11 prednisone AdvReac Nausea Verified 07/29/23 20:11 Consultations 07/29/23 19:56 ED Decision to Admit Stat 07/29/23 21:15 Consult Orthopedic Surgery Routine Procedures Performed Laboratory Results WBC 10.04 K/ul (4.8-10.8) 07/31/23 06:47 RBC 4.73 M/uL (4.20-5.40) 07/31/23 06:47 Hgb 14.6 g/dl (12.0-16.0) 07/31/23 06:47 Hct 44.4 % (37.0-47.0) 07/31/23 06:47 MCV 93.9 fL (80.0-100.0) 07/31/23 06:47 MCH 30.9 pg (25.0-34.0) 07/31/23 06:47 MCHC 32.9 g/dL (32.0-36.0) 07/31/23 06:47 RDW Std Deviation 46.9 fL (36.4-46.3) H 07/31/23 06:47 RDW Coeff of Katina 13.6 % (11.5-14.5) 07/31/23 06:47 Plt Count 213 K/uL (130-400) 07/31/23 06:47 MPV 10.3 fL (9.4-12.4) 07/31/23 06:47 Immature Gran % (Auto) 0.4 % 07/30/23 04:04 Neut % (Auto) 80.6 % 07/30/23 04:04 Lymph % (Auto) 10.9 % 07/30/23 04:04 Ritchie % (Auto) 7.8 % 07/30/23 04:04 Eos % (Auto) 0.0 % 07/30/23 04:04 Baso % (Auto) 0.3 % 07/30/23 04:04 Neut # (Auto) 12.39 K/uL (1.40-6.50) H 07/30/23 04:04 Lymph # (Auto) 1.67 K/uL (1.20-3.40) 07/30/23 04:04 Ritchie # (Auto) 1.19 K/uL (0.11-0.59) H 07/30/23 04:04 Eos # (Auto) 0.00 K/uL (0.00-0.50) 07/30/23 04:04 Baso # (Auto) 0.04 K/uL (0.00-0.20) 07/30/23 04:04 Immature Gran # (Auto) 0.06 K/uL (0.01-0.20) 07/30/23 04:04 PT 10.9 Seconds (9.0-12.0) 07/29/23 16:45 INR 1.0 (0.9-1.1) 07/29/23 16:45 VBG pH 7.38 (7.36-7.41) 07/29/23 17:24 VBG pCO2 48 mmHg (38-50) 07/29/23 17:24 VBG pO2 66 mmHg 07/29/23 17:24 VBG HCO3 28 mmol/L 07/29/23 17:24 VBG O2 Saturation 93.0 % 07/29/23 17:24 VBG Base Excess 2.5 mEq/L 07/29/23 17:24 Sodium 139 mmol/L (136-145) 07/31/23 06:47 Potassium 3.7 mmol/L (3.5-5.1) 07/31/23 06:47 Chloride 100 mmol/L (98-107) 07/31/23 06:47 Carbon Dioxide 33 mmol/L (21-32) H 07/31/23 06:47 Anion Gap 6 (3-11) 07/31/23 06:47 BUN 11 mg/dl (6-23) 07/31/23 06:47 Creatinine 0.46 mg/dl (0.6-1.2) L 07/31/23 06:47 Est Cr Clr Drug Dosing 127.8 ml/min 07/31/23 06:47 Est GFR ( Amer) 128.9 ml/min 07/31/23 06:47 Est GFR (Non-Af Amer) 111.2 ml/min 07/31/23 06:47 BUN/Creatinine Ratio 23.9 (10-20) H 07/31/23 06:47 Glucose 109 mg/dl (70-99(Fasting)) H 07/31/23 06:47 POC Glucose 100 mg/dl (70-99) H 07/31/23 07:52 Estimat Average Glucose 134 mg/dl 07/30/23 04:04 Hemoglobin A1c 6.3 % (4.5-5.6) H 07/30/23 04:04 Calcium 8.7 mg/dl (8.6-10.3) 07/31/23 06:47 Phosphorus 3.0 mg/dl (2.5-4.9) 07/30/23 04:04 Magnesium 1.7 mg/dl (1.7-2.4) 07/31/23 06:47 Total Bilirubin 0.3 mg/dl (0.2-1.0) 07/29/23 16:45 AST 41 U/L (13-39) H 07/29/23 16:45 ALT 47 U/L (7-52) 07/29/23 16:45 Alkaline Phosphatase 74 U/L (34-104) 07/29/23 16:45 Troponin I High Sens 6.8 pg/ml (0-14) 07/29/23 16:45 B-Natriuretic Peptide 12 pg/ml (0-100) 07/29/23 16:45 Total Protein 6.7 gm/dl (6.0-8.3) 07/29/23 16:45 Albumin 4.2 gm/dl (3.4-5.0) 07/29/23 16:45 Globulin 2.5 gm/dl (2.5-4.0) 07/29/23 16:45 Albumin/Globulin Ratio 1.7 (0.9-2) 07/29/23 16:45 Urine Color Yellow 07/29/23 16:40 Urine Appearance Clear (Clear) 07/29/23 16:40 Urine pH 6.0 (4.5-7.5) 07/29/23 16:40 Ur Specific [place] 1.012 (1.000-1.030) 07/29/23 16:40 Urine Protein Negative (Negative) 07/29/23 16:40 Urine Glucose (UA) 3+ (Negative) H 07/29/23 16:40 Urine Ketones Negative (Negative) 07/29/23 16:40 Urine Blood Trace (Negative) H 07/29/23 16:40 Urine Nitrite Negative (Negative) 07/29/23 16:40 Urine Bilirubin Negative (Negative) 07/29/23 16:40 Urine Urobilinogen Negative (Negative) 07/29/23 16:40 Ur Leukocyte Esterase Negative (Negative) 07/29/23 16:40 Urine WBC (Auto) 0 /hpf (0-5) 07/29/23 16:40 Urine RBC (Auto) 0-4 /hpf (0-4) 07/29/23 16:40 U Hyaline Cast (Auto) 0 /lpf (0-5) 07/29/23 16:40 U Epithel Cells (Auto) 5-10 /lpf (0-5) H 07/29/23 16:40 Urine Bacteria (Auto) Negative (Negative) 07/29/23 16:40 Adenovirus (PCR) Not Detected (NotDetected) 07/29/23 16:45 B. pertussis DNA (PCR) Not Detected (NotDetected) 07/29/23 16:45 B.parapertussis DNA PCR Not Detected (NotDetected) 07/29/23 16:45 C. pneumoniae DNA (PCR) Not Detected (NotDetected) 07/29/23 16:45 Coronavirus OC43 (PCR) Not Detected (NotDetected) 07/29/23 16:45 Coronavirus HKU1 (PCR) Not Detected (NotDetected) 07/29/23 16:45 Coronavirus 229E (PCR) Not Detected (NotDetected) 07/29/23 16:45 SARS-CoV-2 (PCR) Not Detected (NotDetected) 07/29/23 16:45 Coronavirus NL63 (PCR) Not Detected (NotDetected) 07/29/23 16:45 Human Metapneumovir PCR Not Detected (NotDetected) 07/29/23 16:45 Influenza Type A (PCR) Not Detected (NotDetected) 07/29/23 16:45 Influenza Type B (PCR) Not Detected (NotDetected) 07/29/23 16:45 M. pneumoniae (PCR) Not Detected (NotDetected) 07/29/23 16:45 Parainfluenza 1 (PCR) Not Detected (NotDetected) 07/29/23 16:45 Parainfluenza 2 (PCR) Not Detected (NotDetected) 07/29/23 16:45 Parainfluenza 3 (PCR) Not Detected (NotDetected) 07/29/23 16:45 Parainfluenza 4 (PCR) Not Detected (NotDetected) 07/29/23 16:45 RSV (PCR) Not Detected (NotDetected) 07/29/23 16:45 Entero/Rhino (PCR) Not Detected (NotDetected) 07/29/23 16:45 Impressions Chest X-Ray 07/29/23 16:31 XR chest 1V portable HISTORY: 58 years-old Female Dyspnea acute shortness of breath COMPARISON: None TECHNIQUE: AP view of the chest FINDINGS: Cardiac silhouette is enlarged. No pneumothorax, pleural effusion or overt pulmonary edema. Subsegmental left basilar opacities. Square-shaped structures overlying the left hemithorax are likely artifactual/external to the patient. Bones appear grossly intact. Cervical spinal fusion hardware. IMPRESSION: Subsegmental left basilar opacities favor atelectasis. ACT 112: Negative or not required by law. The above report was generated using voice recognition software. It may contain grammatical, syntax or spelling errors. Electronically signed by: Isaac Wyatt M.D. 07/29/2023 5:18 PM Chest CTA 07/29/23 16:55 CT angio chest PE protocol CT DOSE: 810.36 mGy.cm HISTORY: 58 years-old Female with PE; hypoxia post surgery. Acute shortness of breath with hypoxia TECHNIQUE: Multiple CTA images of the chest were obtained after the intravenous administration of 119 ml Optiray. Coronal and sagittal MIPS were obtained from the axial data set and were submitted for review. All measurements were obtained according to NASCET criteria. A dose lowering technique was utilized adhering to the principles of ALARA. COMPARISON: 07/29/2023 FINDINGS: CTA: A pericardial effusion is noted measuring up to 1.2 cm transversely. Mild coronary artery calcifications. 1 atherosclerosis of the aorta without aneurysm or dissection. No pulmonary emboli identified. CT CHEST: Unremarkable thyroid. No pathologically enlarged lymph nodes. Mild dependent bibasilar consolidation. No pneumothorax or overt pulmonary edema. There is mild pulmonary emphysema. No suspicious pulmonary nodules or masses. No acute upper abdominal abnormality. Cervical spinal fusion hardware. Degenerative changes of the shoulders and spine. Left glenohumeral joint effusion contains air with additional edema and air within the adjacent musculature and soft tissues including the deltoid muscle. IMPRESSION: 1. No pulmonary emboli identified. 2. Dependent bibasilar consolidation suggestive of atelectasis. 3. Small to moderate pericardial effusion. 4. Postoperative changes of the left shoulder. ACT 112: Negative or not required by law. The above report was generated using voice recognition software. It may contain grammatical, syntax or spelling errors. Electronically signed by: Isaac Wyatt M.D. 07/29/2023 6:06 PM Venous Doppler Study 07/29/23 19:55 Exam(s): US VENOUS BILATERAL LOWER EXTREMITIES EXAM: US Duplex Bilateral Lower Extremities Veins CLINICAL HISTORY: Reason for exam: hypoxia; r/o DVT. TECHNIQUE: Real-time duplex ultrasound scan of the bilateral lower extremity veins integrating B-mode two-dimensional vascular structure, Doppler spectral analysis, color flow Doppler imaging and compression. COMPARISON: None. FINDINGS: Right deep veins: Unremarkable. No DVT in the right common femoral, femoral, proximal deep femoral or popliteal veins. The veins demonstrate normal color flow, are normally compressible, with normal phasic flow and/or augmentation response. Right superficial veins: Unremarkable. No thrombus in the visualized right great saphenous vein. Left deep veins: Unremarkable. No DVT in the left common femoral, femoral, proximal deep femoral or popliteal veins. The veins demonstrate normal color flow, are normally compressible, with normal phasic flow and/or augmentation response. Left superficial veins: Unremarkable. No thrombus in the visualized left great saphenous vein. Soft tissues: No acute findings. No popliteal cyst. IMPRESSION: No ultrasonographic evidence of deep venous thrombosis involving the bilateral lower extremities. Electronically signed by: Nela Mir MD 07/30/23 00:12 AM Ordered Studies 07/29/23 16:55 CT for pulmonary embolism PE [CT angio chest PE protocol] Stat 07/29/23 19:55 US leg [US venous doppler LE BI] Stat Hospital Course (1) Acute hypoxemic respiratory failure: (2) Acute hypokalemia: (3) Hypomagnesemia: (4) Pericardial effusion: (5) Hypertension: (6) COPD (chronic obstructive pulmonary disease): (7) Tobacco abuse: (8) Chronic pain: (9) S/P arthroscopy of left shoulder: Plan 58 year old female with h/o COPD and tobacco abuse s/p left shoulder surgery today who was sent to ED for hypoxia post op Postoperative hypoxia Likely multifactorial secondary to medications/anesthetics, atelectasis in setting of COPD --CTA:No pulmonary emboli identified. Dependent bibasilar consolidation suggestive of atelectasis. Small to moderate pericardial effusion. --Venous Doppler:No ultrasonographic evidence of deep venous thrombosis invol ving the bilateral lower extremities. -- BioFire negative -- BNP normal Continue incentive spirometer, flutter Continue home inhalers Titrate oxygen to keep sats 88 to 92% given history of COPD Weaned off of supplemental oxygen 2 Step: Needs 2 L supplemental oxygen with activity Chronic pericardial effusion Patient aware of effusion many years ago Incidental finding on CT scan Echo pending May need follow-up with cardiology on discharge Hypokalemia Hypomagnesemia Replete electrolytes as needed Monitor Constipation Continue bowel regimen Encouraged to ambulate Postoperative state S/P Left shoulder arthroscopy with left carpal tunnel repair by Dr Crespo done on 07/29/2023 Continue sling/immobilization left upper extremity as recommended by Ortho Pain control as needed Needs follow-up with orthopedics on discharge HTN BP elevated likely situational secondary to pain continue olmesartan Resume HCTZ Added amlodipine 2.5 mg daily Monitor BP Tobacco abuse 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 DM II states she was on jardiance but it dropped her BG too much and it was taken away HbA1c 6.3 Monitor Depression Continue Effexor Chronic pain Insomnia on opiates and baclofen On Xanax hs DVT Px: Lovenox SQ Code Status Full Code Disposition Home Total Time Total Time Spent Total Time Spent (In Minutes): 59 minutes Discharge Plan Discharge Items Patient Disposition: Home - Self-Care Reason For Visit: SOB, HYPOXIA POST SURGERY Discharge Diagnosis: Postoperative hypoxia Pericardial effusion Hypokalemia Hypomagnesemia Postoperative state Hypertension Activity: Per Instructions section Exercise/Sports: Wait until after follow-up appointment Non-emergency contact: Primary Care Provider, Surgeon and [employer] Call non-emergency contact if: you have any medication questions, your symptoms worsen, your pain is concerning for you, you have a fever, your wound has increased redness, your wound has increased drainage and your wound pain has increased Follow-up/Referrals: Tim Armstrong, [Primary Care Provider] - Diet: Heart Healthy Addtl Attending Provider Instructions: Follow-up with your primary care physician in 1 week Follow-up with your orthopedic surgeon Dr Crespo as recommended Consider following with your in process inspector for further evaluation of pericardial effusion as advised -- Monitor your blood pressure regularly at home. Discuss with your primary care physician for further adjustment of medications as needed. --You are incidentally noted to have some pericardial effusion on CT scan. Your ECHO results are pending at the time of discharge. Discuss with your primary care physician/in process inspector for further management. -- Use oxygen via nasal cannula 2 L with activity as advised. Seek immediate medical attention if your symptoms reoccur or worsen Please take all medications as instructed on discharge list below. Please call if you have any questions or problems. You can reach a [facility] hospitalist on duty at [facility] [address] 24 hours a day by calling [phone] Pending Studies at Discharge: No Stand-Alone Forms: My [facility] [employer], Smoking Cessation Medications and DC Order Prescriptions: New amlodipine [Norvasc] 5 mg Tablet 2.5 mg PO QAM Qty: 30 0RF bisacodyl [Gentle Laxative (bisacodyl)] 5 mg Tablet,Delayed Release (Dr/Ec) 5 mg PO DAILY PRN (Reason: constipation) Qty: 30 0RF Mag 64 64 mg Tablet,Delayed Release (Dr/Ec) 64 mg PO BID Qty: 30 0RF docusate sodium 100 mg Capsule 100 mg PO BID PRN (Reason: Constipation) Qty: 60 0RF Continued fluconazole 100 mg tablet 100 mg PO QAM fluticasone propion-salmeterol 250-50 mcg/dose blister with device 1 inh INHALATION BID sennosides [Senokot] 8.6 mg Tablet 17.2 mg PO BID ondansetron HCl 8 mg tablet 8 mg PO BID PRN (Reason: Nausea) famotidine 40 mg tablet 40 mg PO DAILY venlafaxine 150 mg capsule,extended release 24hr 150 mg PO HS melatonin 3 mg Tablet 6 mg PO HS valacyclovir 500 mg tablet 500 mg PO HS omeprazole 40 mg capsule,delayed release(DR/EC) 40 mg PO DAILY acetaminophen [Tylenol Extra Strength] 500 mg Tablet 500 mg PO Q6H PRN (Reason: Pain) baclofen 20 mg tablet 20 mg PO TID PRN (Reason: Muscle Pain) alprazolam 0.25 mg tablet 0.25 mg PO TID PRN (Reason: Anxiety) ascorbic acid (vitamin C) [Vitamin C] 500 mg Tablet 500 mg PO DAILY trazodone 100 mg tablet 100 mg PO HS ropinirole 0.25 mg tablet 0.25 mg PO HS hydrochlorothiazide 12.5 mg capsule 12.5 mg PO DAILY oxcarbazepine 600 mg tablet 300 mg PO BID albuterol sulfate 90 mcg/actuation HFA aerosol inhaler 1 - 2 puff INHALATION Q4 PRN (Reason: Shortness Of Breath Or Wheezing) oxycodone 5 mg tablet 5 mg PO Q6 PRN (Reason: Pain) olmesartan 20 mg tablet 20 mg PO DAILY Acidophilus Tablet,Chewable 1 tab PO DAILY rosuvastatin 20 mg tablet 20 mg PO DAILY potassium chloride 10 mEq tablet,ER particles/crystals 10 meq PO DAILY Held hydrocodone-acetaminophen 7.5-325 mg tablet 1 tab PO Q6 PRN (Reason: Pain) Hold Instructions: Hold until further instructions from your primary care physician Discharge Orders: Discharge Order (Routine); Ordered 07/31/23 Ordered By: Audie Lozoya/Other Patient Handouts: Managing Type 2 Diabetes Admission Data Admit Date/Time: 07/29/23 20:16 Attending Provider: Audie Yo Admit Provider: Godfrey Arreaga Primary Care Provider: Tim Armstrong Other Providers: Cooper Gao; Luis Crespo Other Interventions: Discharge Summary Assessment (RN) Last Done: 07/31/23 11:27
[2023-07-31] MEDS: amLODIPine BESYLATE 5 MG TAB PO SCH (14:06)
[2023-07-31] MEDS: ONDANSETRON INJ 2 MG/ML 2 ML VIAL IV ONE (14:16)
== END 2023-07-31 14:35 | disposition home or self-care (01) | DRG 189 ==
LOC: ED 16:28 → EDINP 20:16 → SUATTDRO 20:16 → 2N 23:53